=== PATIENT | female | born 1930 | race Caucasian/White ===

== ENCOUNTER 2016-08-28 07:39 | Day surgery (SDC) | payer OTHER ==
[2016-08-25 14:27] VITALS: BMI 28.9
[2016-08-28] MEDS ORDERED: PROPOFOL 20 ML ONE ×2 (07:45→09:58)
[2016-08-28 10:29] VITALS: TEMP 98
[2016-08-28 10:51] VITALS: BP 141/69; PULSE 76
== END 2016-08-28 10:55 | disposition home or self-care (01) ==
LOC: FASU-ENDO 07:39
PROVIDERS: ATTEND Internal Medicine Gastroenterology
PROC: 0DJD8ZZ Inspection of Lower Intestinal Tract, Via Natural or Artificial Opening Endoscopic (ICD-10-PCS; principal; 2016-08-28 09:41)
DX: R19.5 Other fecal abnormalities (principal); K57.30 Diverticulosis of large intestine without perforation or abscess without bleeding

== ENCOUNTER 2020-06-26 07:26 | Day surgery (SDC) | payer OTHER ==
[2020-06-25 16:40] VITALS: BMI 28.9
[2020-06-26] MEDS ORDERED: BUPIVACAINE HCL/PF 0.5% (5MG/ML) 10 ML VIAL ONE (10:26)
[2020-06-26] MEDS ORDERED: ERYTHROMYCIN 0.5% OPHTHALMIC OINTMENT 3.5 GM TUBE ONE (10:26)
[2020-06-26] MEDS ORDERED: POVIDONE-IODINE 5% OPHTHALMIC PREP 30 ML SOLUTION ONE (10:26)
[2020-06-26] MEDS ORDERED: TETRACAINE 0.5% OPHTH SOLN 2 ML BOTTLE ONE (10:26)
[2020-06-26] MEDS ORDERED: LIDOCAINE 1%/EPI 1:100000 (20 ML MULTI DOSE VIAL) ONE (10:26)
[2020-06-26] MEDS ORDERED: MIDAZOLAM HCL 2 MG/2 ML SINGLE DOSE VIAL ONE (10:51)
[2020-06-26] MEDS ORDERED: PROPOFOL 20 ML ONE ×2 (10:54→11:51)
[2020-06-26] MEDS ORDERED: ceFAZolin SODIUM 1 GM VIAL ONE (11:11)
[2020-06-26] MEDS ORDERED: ONDANSETRON 4 MG/2 ML VIAL IVPUSH PRN ×2 (12:30→17:03)
[2020-06-26] MEDS ORDERED: oxyCODONE HCL 5 MG TABLET PO PRN ×2 (12:30→17:03)
[2020-06-26] MEDS ORDERED: LACTATED RINGERS SOLUTION 1,000 ML IV SCH ×2 (12:30→17:15)
[2020-06-26] MEDS ORDERED: ACETAMINOPHEN 325 MG TABLET (FP) ONE (13:25)
[2020-06-26 13:30] VITALS: TEMP 98.1
[2020-06-26 14:00] VITALS: BP 163/78; PULSE 79
== END 2020-06-26 14:00 | disposition home or self-care (01) ==
LOC: FASU 07:26
PROVIDERS: ATTEND Ophthalmology
PROC: 0KX10Z2 Transfer Facial Muscle with Skin and Subcutaneous Tissue, Open Approach (ICD-10-PCS; 2020-06-26)
PROC: 0HB1XZZ Excision of Face Skin, External Approach (ICD-10-PCS; principal; 2020-06-26 11:14)
DX: Z42.8 Encounter for other plastic and reconstructive surgery following medical procedure or healed injury (principal); Z08 Encounter for follow-up examination after completed treatment for malignant neoplasm; Z85.828 Personal history of other malignant neoplasm of skin
CPT/HCPCS: 82962; 88304-TC; 94760